=== PATIENT | male | born 1975 | race Caucasian/White ===

== ENCOUNTER 2020-06-12 06:56 | Outpatient (REF) | payer OTHER, SELFPAY | END 2020-06-12 06:57 | disposition home or self-care (01) | LOC: HO.LAB 06:56 | PROVIDERS: Visit Provider Internal Medicine | DX: Z20.828 Contact with and (suspected) exposure to other viral communicable diseases (principal) | CPT/HCPCS: C9803; U0003 ==

== ENCOUNTER 2022-10-24 17:12 | Emergency (ER) | payer OTHER, SELFPAY ==
--- NOTE | ~2022-10-24 | XR_ITS ---
EXAMINATION: XR CHEST CLINICAL INFORMATION: Reason for Exam left sided chest pain/rib pain COMPARISON: None TECHNIQUE: 2 views of the chest FINDINGS: Clear lungs. No pneumothorax or pleural effusion. Normal cardiomediastinal silhouette. No displaced rib fracture appreciated however chest radiographs have limited sensitivity. XR/XR chest 2V IMPRESSION: * Clear lungs.
[2022-10-24 17:55] VITALS: BP 122/96; PULSE 62; RESP 18; TEMP 36.9; O2SAT 99; BMI 22.9
--- NOTE | 2022-10-24 17:55 | ED.GENADULT ---
HPI - General Adult General Chief complaint: Chest Pain <KELLY Bhakta - Last Filed: 10/24/22 18:00> Stated complaint: left rib and back pain <KELLY Bhakta - Last Filed: 10/24/22 18:00> Time Seen by Provider: 10/24/22 23:13 <KELLY Bhakta - Last Filed: 10/24/22 18:00> Source: patient <Jomar Iyer MD - Last Filed: 10/24/22 23:44> Mode of arrival: ambulatory <Jomar Iyer MD - Last Filed: 10/24/22 23:44> Limitations: no limitations <Jomar Iyer MD - Last Filed: 10/24/22 23:44> History of Present Illness HPI narrative: 47-year-old male who presents emergency department for evaluation of left-sided chest pain. He states that the pain came on suddenly 2 nights prior and woke him up from sleep. He states the pain is worse with coughing and with breathing. He states the patient has been a constant, sharp pain located in the left side of his chest and axillary area. He states the pain is moderate to severe in intensity. He has been taking ibuprofen 800 mg 3 to 4 times a day with no relief his pain. He denied fever, chills, rhinorrhea, sore throat, shortness of breath, dyspnea on exertion, pain or swelling in his extremities, he is not going to any recent long trips, he has had no recent surgeries. <Jomar Iyer MD - Last Filed: 10/24/22 23:44> Related Data Home medications: Previous Rx's Medication Instructions Recorded morphine 15 mg immediate release 15 mg PO Q4-6H PRN pain #10 tabs 10/24/22 tablet <KELLY Bhakta - Last Filed: 10/24/22 18:00> Allergies/adverse reactions: Allergies Allergy/AdvReac Type Severity Reaction Status Date / Time No Known Allergies Allergy Unverified 04/06/20 15:09 <KELLY Bhakta - Last Filed: 10/24/22 18:00> Review of Systems Review of Systems: Yes all other systems are reviewed and are negative <Jomar Iyer MD - Last Filed: 10/24/22 23:44> [facility] Past Medical History [facility] Narrative: Past medical history: Migraines. Past surgical history: None. Social history: He denies tobacco and alcohol use. He occasionally smokes marijuana. 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 <Jomar Iyer MD - Last Filed: 10/24/22 23:44> Social History Social History: Social History Advance Directives: No Advance Directives Information Provided: Yes <KELLY Bhakta - Last Filed: 10/24/22 18:00> Physical Exam ED Vital Signs: Vital Signs - 24 hr 10/24/22 17:55 10/24/22 21:53 Temperature 98.4 F 97.0 F Pulse Rate 62 56 Respiratory Rate 18 17 Blood Pressure 122/96 H 114/82 Pulse Oximetry 99 100 Oxygen Delivery Method Room Air Room Air BMI result Body Mass Index 22.9 <KELLY Bhakta - Last Filed: 10/24/22 18:00> Vital Signs - 24 hr 10/24/22 17:55 10/24/22 21:53 Temperature 98.4 F 97.0 F Pulse Rate 62 56 Respiratory Rate 18 17 Blood Pressure 122/96 H 114/82 Pulse Oximetry 99 100 Oxygen Delivery Method Room Air Room Air BMI result Body Mass Index 22.9 <Jomar Iyer MD - Last Filed: 10/24/22 23:44> HENMT Head: Yes normal to inspection, Yes normocephalic and Yes atraumatic <Jomar Iyer MD - Last Filed: 10/24/22 23:44> Ears: external ears normal <Jomar Iyer MD - Last Filed: 10/24/22 23:44> General nose exam: Normal external nose present <Jomar Iyer MD - Last Filed: 10/24/22 23:44> Face and sinus: Yes normal facial exam <Jomar Iyer MD - Last Filed: 10/24/22 23:44> Mouth: Normal oral and palatal mucosa present <Jomar Iyer MD - Last Filed: 10/24/22 23:44> Throat: Yes posterior oropharynx normal <MD Des Antony Last Filed: 10/24/22 23:44> Eyes General: appearance normal, both eyes and all related structures <MD Des Antony Last Filed: 10/24/22 23:44> Pupils: Equal, round and reactive pupils present <MD Des Antony Last Filed: 10/24/22 23:44> Neck Neck: Yes normal visual inspection, Yes no lymphadenopathy, Yes trachea midline and Yes supple <Jomar Iyer MD - Last Filed: 10/24/22 23:44> Chest Other: Chest flores normal inspection, there is no rashes or lesions noted on his chest, he has mild left sided chest wall tenderness <Jomar Iyer MD - Last Filed: 10/24/22 23:44> Resp Effort & Inspection: normal respiratory effort and able to speak in complete sentences <MD Des Antony Last Filed: 10/24/22 23:44> Auscultation: clear to auscultation bilaterally <MD Des Antony Last Filed: 10/24/22 23:44> Cardio Rate: regular rate <MD Des Antony Last Filed: 10/24/22 23:44> Rhythm: regular rhythm <MD Des Antony Last Filed: 10/24/22 23:44> Heart sounds: S1 normal heart sound present, S2 normal heart sound present and no murmurs <MD Des Antony Last Filed: 10/24/22 23:44> GI Inspection: Yes normal to inspection <MD Des Antony Last Filed: 10/24/22 23:44> Palpation (GI): Soft to palpation, nontender and no guarding <MD Des Antony Last Filed: 10/24/22 23:44> Auscultation: normal bowel sounds <MD Des Antony Last Filed: 10/24/22 23:44> General: Yes no CVA tenderness <MD Des Antony Last Filed: 10/24/22 23:44> Back/Spine/Pelvis Back: no CVA tenderness <Jomar Iyer MD - Last Filed: 10/24/22 23:44> Skin General skin exam: no rashes or lesions noted <Jomar Iyer MD - Last Filed: 10/24/22 23:44> Neuro Cranial nerves: Yes CN's II-XII intact bilaterally and Yes Equal, round and reactive pupils present <Jomar Iyer MD - Last Filed: 10/24/22 23:44> Cognition (Neuro): normal cognition <Jomar Iyer MD - Last Filed: 10/24/22 23:44> Motor exam (neuro): 5/5 motor strength present throughout <Jomar Iyer MD - Last Filed: 10/24/22 23:44> Extrem General: Yes normal to inspection <Jomar Iyer MD - Last Filed: 10/24/22 23:44> Psych Appearance: grossly normal <Jomar Iyer MD - Last Filed: 10/24/22 23:44> Speech and movement: Normal speech and movement present <Jomar Iyer MD - Last Filed: 10/24/22 23:44> Affect: normal affect <Jomar Iyer MD - Last Filed: 10/24/22 23:44> Attitude: cooperative <Jomar Iyer MD - Last Filed: 10/24/22 23:44> Course Course Course Narrative: RME - 47 yo male presents to the ER for evaluation of nontraumatic, sharp pains in his left axillary area and left sided back pains that started yesterday. Pains kept him up at night. No relief with motrin. No SOB, nausea or diaphroesis. no cardiac risk factors. PERC negative Plan: labs, CXR and EKG <KELLY Bhakta - Last Filed: 10/24/22 18:00> Medical Decision Making Medical Decision Making MDM Narrative: 47-year-old male who presents emergency department for evaluation of sudden onset of left sided chest and axillary pain which started 2 nights prior, woke him up from sleep. The pain is been constant. The pain is worse with breathing with coughing. He had no concerning systemic symptoms such as fever, chills, shortness of breath or dyspnea on exertion. He has not noted any pain or swelling in his legs, he has had no recent surgeries or gone on any long trips. Patient's exam did reveal minimal tenderness with palpation of his chest. Patient's chest x-ray and 12 EKG were unremarkable. Patient's presentation is consistent with pleurisy. Patient was advised to take Tylenol and ibuprofen for his pain and for pain not relieved by these medications she was prescribed morphine. He was given printed and verbal instructions and discharged home. <Jomar Iyer MD - Last Filed: 10/24/22 23:44> Differential Diagnosis Differential diagnosis includes was not limited to chest wall pain, pleurisy, pulmonary embolism, myocardial infarction, pneumonia, pneumothorax, viral syndrome <Jomar Iyer MD - Last Filed: 10/24/22 23:44> Lab Data MDM Lab Attestation statement: I reviewed the patient's lab results. <Jomar Iyer MD - Last Filed: 10/24/22 23:44> My independent interpretation patient's laboratory evaluation is as follows: CBC, CMP, troponin were negative. <Jomar Iyer MD - Last Filed: 10/24/22 23:44> Result Diagrams: 10/24/22 18:04 10/24/22 18:04 <KELLY Bhakta - Last Filed: 10/24/22 18:00> Labs: Lab Results 10/24/22 10/24/22 10/24/22 Range/Units 18:04 18:04 18:04 WBC 7.5 (4.8-10.8) X10*3/uL RBC 4.46 L (4.60-5.80) X10*6/uL Hgb 13.2 L (14.0-18.0) g/dl Hct 38.7 L (42.0-52.0) % MCV 86.8 (80.0-98.0) fL MCH 29.6 (27.0-33.0) pg MCHC 34.1 (31.0-36.0) g/dl RDW 12.0 (11.0-16.0) % Plt Count 225 (160-400) X10*3/uL MPV 10.7 (9.4-12.4) fL Immature Gran % (Auto) 0.5 H (0.0-0.4) % Neut % (Auto) 63.4 (45-73) % Lymph % (Auto) 20.4 (20-40) % [place] % (Auto) 12.8 H (2-11) % Eos % (Auto) 2.4 (0-4) % Baso % (Auto) 0.5 (0-2) % Lymph # (Auto) 1.5 (1.2-4.9) X10*3/uL [place] # (Auto) 1.0 (0.1-1.2) X10*3/uL Eos # (Auto) 0.2 (0.0-0.4) X10*3/uL Baso # (Auto) 0.0 (0.0-0.2) X10*3/uL Abs Immat Gran (auto) 0.04 H (0.00-0.03) X10*3/uL Absolute Neuts (auto) 4.8 (2.0-8.3) x10*3/uL Absolute Nucleated RBC 0.000 (0.0-0.012) X10*3/uL Nucleated RBC % (auto) 0.0 (0.0-0.2) /100WBC Sodium 143 (135-145) mmol/L Potassium 4.5 (3.3-5.1) mmol/L Chloride 105 (96-108) mmol/L Carbon Dioxide 27 (22-29) mmol/L Anion Gap 16 (12-20) BUN 13 (9-16) mg/dL Creatinine 0.90 (0.5-1.4) mg/dL Estim Creat Clear Calc 105.2 Estimated GFR > 60 Random Glucose 99 (60-115) mg/dL Calcium 9.6 (8.4-10.2) mg/dL Magnesium 2.1 (1.6-2.6) mg/dL Total Bilirubin 0.4 (0.0-1.0) mg/dL Direct Bilirubin < 0.2 (0.0-0.5) mg/dL AST 18 (5-37) U/L ALT 16 (0-40) U/L Alkaline Phosphatase 107 (39-117) U/L Troponin I High Sens < 2.7 (<3.5-35.0) ng/L Total Protein 6.7 (6.5-8.0) g/dL Albumin 4.4 (3.5-5.0) g/dL <KELLY Bhakta - Last Filed: 10/24/22 18:00> Lab Results 10/24/22 10/24/22 10/24/22 Range/Units 18:04 18:04 18:04 WBC 7.5 (4.8-10.8) X10*3/uL RBC 4.46 L (4.60-5.80) X10*6/uL Hgb 13.2 L (14.0-18.0) g/dl Hct 38.7 L (42.0-52.0) % MCV 86.8 (80.0-98.0) fL MCH 29.6 (27.0-33.0) pg MCHC 34.1 (31.0-36.0) g/dl RDW 12.0 (11.0-16.0) % Plt Count 225 (160-400) X10*3/uL MPV 10.7 (9.4-12.4) fL Immature Gran % (Auto) 0.5 H (0.0-0.4) % Neut % (Auto) 63.4 (45-73) % Lymph % (Auto) 20.4 (20-40) % [place] % (Auto) 12.8 H (2-11) % Eos % (Auto) 2.4 (0-4) % Baso % (Auto) 0.5 (0-2) % Lymph # (Auto) 1.5 (1.2-4.9) X10*3/uL [place] # (Auto) 1.0 (0.1-1.2) X10*3/uL Eos # (Auto) 0.2 (0.0-0.4) X10*3/uL Baso # (Auto) 0.0 (0.0-0.2) X10*3/uL Abs Immat Gran (auto) 0.04 H (0.00-0.03) X10*3/uL Absolute Neuts (auto) 4.8 (2.0-8.3) x10*3/uL Absolute Nucleated RBC 0.000 (0.0-0.012) X10*3/uL Nucleated RBC % (auto) 0.0 (0.0-0.2) /100WBC Sodium 143 (135-145) mmol/L Potassium 4.5 (3.3-5.1) mmol/L Chloride 105 (96-108) mmol/L Carbon Dioxide 27 (22-29) mmol/L Anion Gap 16 (12-20) BUN 13 (9-16) mg/dL Creatinine 0.90 (0.5-1.4) mg/dL Estim Creat Clear Calc 105.2 Estimated GFR > 60 Random Glucose 99 (60-115) mg/dL Calcium 9.6 (8.4-10.2) mg/dL Magnesium 2.1 (1.6-2.6) mg/dL Total Bilirubin 0.4 (0.0-1.0) mg/dL Direct Bilirubin < 0.2 (0.0-0.5) mg/dL AST 18 (5-37) U/L ALT 16 (0-40) U/L Alkaline Phosphatase 107 (39-117) U/L Troponin I High Sens < 2.7 (<3.5-35.0) ng/L Total Protein 6.7 (6.5-8.0) g/dL Albumin 4.4 (3.5-5.0) g/dL <Jomar Iyer MD - Last Filed: 10/24/22 23:44> Independent Interpretation I performed an independent interpretation of an: EKG and Plain X-Ray <Jomar Iyer MD - Last Filed: 10/24/22 23:44> Interpretation: My independent interpretation patient's 12 EKG done at 1759 is as follows: Sinus bradycardia with a rate of 56, normal VT interval, QRS duration QTC interval, no ST segment elevation, no ST segment depression, no PACs, no PVCs except for the bradycardia this is a normal EKG. My independent interpretation patient's two-view chest x-ray is as follows: No pneumothorax, no pneumonia, no acute disease. <Jomar Iyer MD - Last Filed: 10/24/22 23:44> Radiology Impression Discussion of test interpretation with radiology: I have reviewed the radiologist's reading. <Jomar Iyer MD - Last Filed: 10/24/22 23:44> Radiologist Impression: XR chest 2V IMPRESSION: * Clear lungs. Dictated By:Radha Hernandez MD <Jomar Iyer MD - Last Filed: 10/24/22 23:44> Discharge Plan Discharge Clinical Impression: Chest pain, Acute pleurisy without pleural effusion <KELLY Bhakta - Last Filed: 10/24/22 18:00> Patient Disposition: Home, Self-Care <KELLY Bhakta - Last Filed: 10/24/22 18:00> Instructions: Pleurisy (ED) <KELLY Bhakta - Last Filed: 10/24/22 18:00> Additional Instructions: Your laboratory evaluation was normal. There is a marker for heart damage pulled troponin, you have no troponin in your blood. This is reassuring suggesting that your symptoms are not caused by heart damage/heart attack Your 12 EKG was normal. Your chest x-ray was unremarkable, there was no evidence for pneumonia or a popped lung (pneumothorax). Your symptoms are consistent with inflammation of the lining of the lung (pleurisy) Take ibuprofen 200 mg pills, 2 pills every 6 hours as needed for pain. Take Tylenol (acetaminophen) 2 pills every 6 hours as needed for pain. For pain not relieved by ibuprofen or Tylenol take morphine 15 mg pills, 1 pill every 4 hours as needed for pain. This medication will make you sleepy, do not drive or work while taking this medication. Morphine is a narcotic medication and can be addicting. If you are concerned about addiction you can ask the pharmacist for less pills or do not get this prescription filled. Follow-up with your doctor in 2 days. Please return to the emergency department if your symptoms get worse or if you develop any symptoms that are concerning to you. <KELLY Bhakta - Last Filed: 10/24/22 18:00> Prescriptions: New morphine 15 mg tablet 15 mg PO Q4-6H PRN (Reason: pain) Qty: 10 0RF Rx Instructions: The patient may ask for partial fill; Partial Fill upon patient request. <KELLY Bhakta - Last Filed: 10/24/22 18:00>
--- NOTE | 2022-10-24 17:56 | ECG_ITS ---
Test Reason : cp Blood Pressure : / mmHG Vent. Rate : 056 BPM Atrial Rate : 056 BPM P-R Int : 160 ms QRS Dur : 094 ms QT Int : 392 ms P-R-T Axes : 057 050 026 degrees QTc Int : 378 ms Sinus bradycardia Otherwise normal ECG No previous ECGs available Referred By: Janina Quintero Electronically Signed By:Gabe Lawton
[2022-10-24 18:08] LABS: MANUAL DIFF FLAG NO
[2022-10-24 18:11] LABS: Basophils Percent Auto 0.5 % (0-2); Eosinophils Absolute Auto 0.2 X10*3/uL (0.0-0.4); Eosinophils Percent Auto 2.4 % (0-4); Hematocrit 38.7 % (42.0-52.0); Hemoglobin 13.2 g/dl (14.0-18.0); Imm Gran Abs Auto 0.04 X10*3/uL (0.00-0.03); Imm Gran Pct Auto 0.5 % (0.0-0.4); Lymphocytes Absolute Auto 1.5 X10*3/uL (1.2-4.9); Lymphocytes Percent Auto 20.4 % (20-40); Mean Corpuscular HGB Conc 34.1 g/dl (31.0-36.0); Mean Corpuscular Hemoglobin 29.6 pg (27.0-33.0); Mean Corpuscular Volume 86.8 fL (80.0-98.0); Mean Platelet Volume 10.7 fL (9.4-12.4); Monocytes Percent Auto 12.8 % (2-11); Neutrophils Absolute Auto 4.8 x10*3/uL (2.0-8.3); Neutrophils Percent Auto 63.4 % (45-73); Platelet Count 225 X10*3/uL (160-400); Red Blood Count 4.46 X10*6/uL (4.60-5.80); White Blood Count 7.5 X10*3/uL (4.8-10.8)
[2022-10-24 18:27] LABS: Alanine Aminotransferase 16 U/L (0-40); Albumin Level 4.4 g/dL (3.5-5.0); Alkaline Phosphatase 107 U/L (39-117); Anion Gap 16 (12-20); Aspartate Amino Transferase 18 U/L (5-37); Bilirubin Direct < 0.2 mg/dL (0.0-0.5); Bilirubin Total 0.4 mg/dL (0.0-1.0); Blood Urea Nitrogen 13 mg/dL (9-16); Calcium 9.6 mg/dL (8.4-10.2); Carbon Dioxide 27 mmol/L (22-29); Chloride 105 mmol/L (96-108); Creatinine Clr Calc Pharmacy 105.2; Estimated Glomerular Filt Rate > 60; Glucose Random 99 mg/dL (60-115); Magnesium 2.1 mg/dL (1.6-2.6); Potassium 4.5 mmol/L (3.3-5.1); Sodium 143 mmol/L (135-145); Total Protein 6.7 g/dL (6.5-8.0)
[2022-10-24 18:35] LABS: Troponin-I High Sensitivity < 2.7 ng/L (<3.5-35.0)
[2022-10-24 21:53] VITALS: BP 114/82; PULSE 56; RESP 17; TEMP 36.1; O2SAT 100
== END 2022-10-24 23:58 | disposition home or self-care (01) ==
PROVIDERS: Physician Assistant; Emergency Provider Emergency Medicine Emergency Medical Services
DX: R07.9 Chest pain, unspecified (principal); R09.1 Pleurisy; M54.50 Low back pain, unspecified; Z79.899 Other long term (current) drug therapy
CPT/HCPCS: 36415; 71046; 80048; 80076; 83735; 84484; 85025; 93005; 99283

== ENCOUNTER 2024-03-30 06:45 | Emergency (ER) | payer OTHER, SELFPAY ==
--- NOTE | ~2024-03-30 | CT_ITS ---
EXAMINATION: CT ABDOMEN AND PELVIS WITHOUT CONTRAST CLINICAL INFORMATION: Flank pain. Possible kidney stone. COMPARISON: CT abdomen and pelvis April 20, 2013 TECHNIQUE: Multidetector volumetric imaging was performed from the superior aspect of the liver through the pubic symphysis. Sagittal and coronal reformatted images were obtained on the technologist's workstation. This CT examination was performed using dose optimization techniques as appropriate, variously including the following: *Automated exposure control *Adjustment of mA and/or kV according to patient size (this includes techniques or standardized protocols for targeted exams where dose is matched to indication/reason for exam; i.e. extremities or head) *Use of iterative reconstruction technique DLP: 4:15 mGy-cm FINDINGS: Visualized lung bases are well aerated. The liver is normal in size. The gallbladder is normal in appearance. The pancreas, spleen and adrenal glands are unremarkable. Symmetric sized kidneys. No renal calculi or hydronephrosis of either kidney. Small hiatal hernia. Stomach is relatively decompressed. Normal caliber loops of small and large bowel. Mild colonic diverticulosis without CT evidence to suggest active diverticulitis. Normal caliber abdominal aorta demonstrating mild atherosclerotic disease. No retroperitoneal lymphadenopathy The bladder is normal in appearance. The prostate gland is normal in size. No gross free pelvic fluid. No inguinal lymphadenopathy. Mild diffuse degenerative changes of the spine. Partially visualized T9 hem[address]oma[address] CT/CT abdomen pelvis wo IV con IMPRESSION: 1. No renal calculi or hydronephrosis of either kidney. 2. Mild colonic diverticulosis without CT evidence to suggest active diverticulitis. Fleischner guidelines were followed. Electronically signed by: Colby Mckeon MD 03/30/2024 08:01 AM EDT
--- NOTE | 2024-03-30 06:54 | ED.GENADULT ---
HPI - General Adult General Chief complaint: Urogenital-Male Stated complaint: possible kidney stone Time Seen by Provider: 03/30/24 06:53 Source: patient Mode of arrival: ambulatory Limitations: no limitations History of Present Illness ED Provider: Sherri Nance PA-C HPI narrative: Patient is a 48 year old assigned male at with a history of kidney stones presenting to the emergency department today with left flank pain. Patient states that over the last day he has had left sided flank pain and he had an episode of vomiting. Patient denies any dizziness, lightheadedness, abdominal pain, fever, chills, blurry vision, double vision, loss of vision, chest pain, difficulty breathing, shortness of breath, back pain, night sweats, pain with urination, increased urinary frequency, increased urinary urgency, blood in his urine or stool, syncope or a near syncopal episode, recent trauma or falls, bowel incontinence, bladder incontinence, or any other complaints at this time. Onset (ago): day(s) (1) Location: left (flank) Relieving factors: none Exacerbating factors: none Associated symptoms: nausea/vomiting Treatments prior to arrival: none Related Data Previous Rx's ?Medication ?Instructions ?Recorded morphine 15 mg immediate release 15 mg PO Q4-6H PRN pain #10 tabs 10/24/22 tablet Allergies Allergy/AdvReac Type Severity Reaction Status Date / Time No Known Allergies Allergy Verified 03/30/24 06:56 Review of Systems Constitutional: Constitutional: Reports no additional constitutional complaints, Denies chills, Denies fever(s) and Denies night sweats Eyes: Eyes: Reports no additional eye complaints, Denies blurry vision, Denies change in vision, Denies diplopia, Denies eye discharge, Denies loss of vision and Denies eye pain ENT: Denies dizziness Cardiovascular: Cardiovascular: Reports no additional cardiovascular complaints, Denies chest pain, Denies lightheadedness, Denies Loss of Consciousness and Denies dyspnea Respiratory: Respiratory: Reports no additional respiratory complaints and Denies dyspnea Gastrointestinal: Gastrointestinal: Reports no additional gastrointestinal complaints, Denies abdominal pain, Denies melena, Denies hematochezia, Denies change in bowel habits and Denies change in stool character Genitourinary: Genitourinary: Reports no additional male genitourinary complaints, Denies hematuria, Denies oliguria, Denies difficulty urinating, Denies dysuria, Denies urinary frequency, Denies urinary hesitancy, Denies urinary incontinence and Denies urinary urgency Comments: left flank pain Musculoskeletal: Musculoskeletal: Reports no additional musculoskeletal complaints, Denies numbness and Denies tingling Neurologic: Denies dizziness, Denies loss of vision, Denies numbness and Denies tingling Psychiatric: Psychiatric: Reports no additional psychiatric complaints Endocrine: Endocrine: Reports no additional endocrine complaints Hematologic/Lymphatic: Hematologic/Lymphatic: Reports no additional hematologic/lymphatic complaints Allergic/Immunologic: Allergic/Immunologic: Reports no additional allergic/immunologic complaints [facility] Past Medical History Attestation statement: The following information was validated with the patient. Source: old records reviewed and nursing notes reviewed Social History Social History Smoked in Last 30 Days: No Use of substances other than those prescribed or required for medical reasons: Yes Substance Use Type: Marijuana Advance Directives: No Advance Directives Information Provided: Yes Do you have a plan to hurt others: No Plan Physical Exam ED Vital Signs: Vital Signs - 24 hr 03/30/24 06:55 03/30/24 09:09 03/30/24 10:05 Temperature 97.7 F 97.6 F 97.6 F Pulse Rate 65 54 54 Respiratory Rate 17 18 18 Blood Pressure 114/67 106/77 106/77 Pulse Oximetry 95 96 96 Oxygen Delivery Method Room Air Room Air Room Air BMI result Body Mass Index 21.1 Const General: cooperative, no acute distress, alert and awake Nutritional Appearance: well nourished Orientation/consciousness: patient oriented x3 Limitations: no limitations [facility] Head: Yes normal to inspection and Yes atraumatic Ears: hearing grossly normal bilaterally and external ears normal General nose exam: Normal external nose present, no nasal discharge noted and no epistaxis Face and sinus: Yes normal facial exam, No abrasion and No laceration Mouth: Normal oral and palatal mucosa present, no drooling and no muffled voice Eyes General: appearance normal, both eyes and all related structures Periorbital: periorbital findings normal Eyelids: Yes eyelids normal Conjunctivae: conjunctivae normal Pupils: Equal, round and reactive pupils present EOM: EOMs intact bilaterally Neck Neck: Yes normal visual inspection, Yes full ROM and Yes no lymphadenopathy Chest Chest palpation & inspection: normal inspection of the chest Resp Effort & Inspection: normal respiratory effort and able to speak in complete sentences GI Inspection: Yes normal to inspection Palpation (GI): Soft to palpation, not firm, nontender, no guarding and not rigid Neuro General: patient oriented x3 and moves all extremities Cranial nerves: Yes Equal, round and reactive pupils present Cognition (Neuro): normal cognition Extrem General: Yes normal to inspection, Yes full ROM and Yes capillary refill normal Psych Appearance: grossly normal Mental Status: mental status grossly normal Affect: normal affect Attitude: cooperative Thought process: Normal thought process present Thought content: Normal thought content present Insight: Good insight present (Psych) Medications Administered Discontinued Medications Generic Name Dose Route Start Last Admin Trade Name Freq PRN Reason Stop Dose Admin Hydromorphone HCl 1 mg 03/30/24 08:03 03/30/24 08:11 Hydromorphone Hcl 1 Mg/Ml Syringe IVPUSH 03/30/24 08:04 1 mg ONCE ONE Administration Protocol Sodium Chloride 1,000 mls @ 999 mls/hr 03/30/24 07:00 03/30/24 08:24 Ns IV 03/30/24 08:00 Infused .Q1H1M VEENA Infusion Ketorolac Tromethamine 15 mg 03/30/24 06:57 03/30/24 07:07 Ketorolac Tromethamine 15 Mg/Ml Vial IVPUSH 03/30/24 06:58 15 mg ONCE ONE Administration Ondansetron HCl 4 mg 03/30/24 06:57 03/30/24 07:07 Ondansetron Hcl 4 Mg/2 Ml Vial IVPUSH 03/30/24 06:58 4 mg ONCE ONE Administration Medical Decision Making Medical Decision Making [facility] Narrative: Patient is a 48 year old assigned male at with a history of kidney stones presenting to the emergency department today with left flank pain. Patient's physical exam was unremarkable. Patient's blood work was unremarkable. Patient's urine showed no acute process. Patient's CT abd/pelvis showed no acute process. I explained my physical exam findings as well as all test results to the patient. I answered all questions asked by the patient. Patient received IV pain medication which upon re-evaluation he stated helped his symptoms significantly. I stressed the importance of the patient taking his medication as directed (either prescribed or as the over the counter packaging recommends). I stressed the importance of the patient following up with his primary care provider. I stressed the importance of the patient returning to the emergency department immediately if his symptoms were to worsen or if he were to develop any dizziness, shortness of breath, difficulty breathing, chest pain, blurry vision, loss of vision, nausea, vomiting, abdominal pain, fever, chills, back pain, or any other complaints. Patient verbalized agreement and understanding with this treatment plan and discharge. Differential Diagnosis Differential Diagnoses: The differential diagnosis associated with the presentation includes Left flank pain Passed kidney stone Diverticulitis Admission/Observation Consideration of admission/observation: Escalation of care including admission/observation considered Patient would have been admitted to the hospital had his work up had any findings where hospital admission was appropriate and his clinical presentation warranted hospital admission. Lab Data MDM Lab Attestation statement: I reviewed the patient's lab results. My interpretation of these studies and their corresponding values is that they are grossly normal. 03/30/24 07:05 03/30/24 07:05 Labs: Lab Results 03/30/24 03/30/24 Range/Units 07:05 09:11 WBC 4.8 (4.8-10.8) X10*3/uL RBC 4.47 L (4.60-5.80) X10*6/uL Hgb 13.3 L (14.0-18.0) g/dl Hct 37.8 L (42.0-52.0) % MCV 84.6 (80.0-98.0) fL MCH 29.8 (27.0-33.0) pg MCHC 35.2 (31.0-36.0) g/dl RDW 12.4 (11.0-16.0) % Plt Count 225 (160-400) X10*3/uL MPV 10.3 (9.4-12.4) fL Immature Gran % (Auto) 0.4 (0.0-0.4) % Neut % (Auto) 70.9 (45-73) % Lymph % (Auto) 16.3 L (20-40) % Falls % (Auto) 9.7 (2-11) % Eos % (Auto) 2.1 (0-4) % Baso % (Auto) 0.6 (0-2) % Lymph # (Auto) 0.8 L (1.2-4.9) X10*3/uL Falls # (Auto) 0.5 (0.1-1.2) X10*3/uL Eos # (Auto) 0.1 (0.0-0.4) X10*3/uL Baso # (Auto) 0.0 (0.0-0.2) X10*3/uL Abs Immat Gran (auto) 0.02 (0.00-0.03) X10*3/uL Absolute Neuts (auto) 3.4 (2.0-8.3) x10*3/uL Absolute Nucleated RBC 0.000 (0.0-0.012) X10*3/uL Nucleated RBC % (auto) 0.0 (0.0-0.2) /100WBC Sodium 142 (135-145) mmol/L Potassium 3.9 (3.3-5.1) mmol/L Chloride 109 H (96-108) mmol/L Carbon Dioxide 26 (22-29) mmol/L Anion Gap 11 L (12-20) BUN 13 (9-16) mg/dL Creatinine 0.89 (0.5-1.4) mg/dL Estim Creat Clear Calc 99.5 Estimated GFR > 60 Random Glucose 109 (60-115) mg/dL Calcium 9.4 (8.4-10.2) mg/dL Magnesium 2.0 (1.6-2.6) mg/dL Total Bilirubin 0.5 (0.0-1.0) mg/dL AST 19 (5-37) U/L ALT 13 (0-40) U/L Alkaline Phosphatase 80 (39-117) U/L Total Protein 6.7 (6.5-8.0) g/dL Albumin 4.2 (3.5-5.0) g/dL Urine Color Yellow Urine Appearance Clear Urine pH 6.5 (5.0-9.0) Ur Specific [place] 1.010 (1.005-1.025) Urine Protein Negative (Neg-Trace) mg/dL Urine Glucose (UA) Negative (Negative) mg/dL Urine Ketones Negative (Negative) mg/dL Urine Blood Negative (Negative) Urine Nitrite Negative (Negative) Ur Leukocyte Esterase Negative (Negative) Influenza Type A (PCR) NEGATIVE (Negative) Influenza Type B (PCR) NEGATIVE (Negative) RSV RNA Qual (PCR) NEGATIVE (Negative) SARS-CoV-2 RNA (RT-PCR) NEGATIVE (Negative) Independent Interpretation I performed an independent interpretation of an: CT Scan Interpretation: My interpretation is in agreement with the radiologist's impression of this imaging study. EXAMINATION: CT ABDOMEN AND PELVIS WITHOUT CONTRAST CLINICAL INFORMATION: Flank pain. Possible kidney stone. COMPARISON: CT abdomen and pelvis April 20, 2013 TECHNIQUE: Multidetector volumetric imaging was performed from the superior aspect of the liver through the pubic symphysis. Sagittal and coronal reformatted images were obtained on the technologist's workstation. This CT examination was performed using dose optimization techniques as appropriate, variously including the following: *Automated exposure control *Adjustment of mA and/or kV according to patient size (this includes techniques or standardized protocols for targeted exams where dose is matched to indication/reason for exam; i.e. extremities or head) *Use of iterative reconstruction technique DLP: 4:15 mGy-cm FINDINGS: Visualized lung bases are well aerated. The liver is normal in size. The gallbladder is normal in appearance. The pancreas, spleen and adrenal glands are unremarkable. Symmetric sized kidneys. No renal calculi or hydronephrosis of either kidney. Small hiatal hernia. Stomach is relatively decompressed. Normal caliber loops of small and large bowel. Mild colonic diverticulosis without CT evidence to suggest active diverticulitis. Normal caliber abdominal aorta demonstrating mild atherosclerotic disease. No retroperitoneal lymphadenopathy The bladder is normal in appearance. The prostate gland is normal in size. No gross free pelvic fluid. No inguinal lymphadenopathy. Mild diffuse degenerative changes of the spine. Partially visualized T9 hem[address]oma[address] CT/CT abdomen pelvis wo IV con IMPRESSION: 1. No renal calculi or hydronephrosis of either kidney. 2. Mild colonic diverticulosis without CT evidence to suggest active diverticulitis. Fleischner guidelines were followed. Electronically signed by: Colby Mckeon MD 03/30/2024 08:01 AM EDT RP Dictated By: Colby Mckeon MD Signed By: Electronically signed by Colby Mckeon MD 03/30/24 0801 Radiology Impression Discussion of test interpretation with radiology: I have reviewed the radiologist's reading. Critical Care Time Critical Care Time Critical Care Time: Yes Total Critical Care Time: 42 Attestation: I spent 42 minutes of Critical Care Time with this patient. This does not include time spent on separately reported billable procedures. Discharge Plan Discharge Clinical Impression: Abdominal pain Patient Disposition: Home, Self-Care Instructions: Abdominal Pain (ED) Additional Instructions: Follow up with your primary care provider. Return to the emergency department immediately if your symptoms worsen or if you develop any dizziness, shortness of breath, difficulty breathing, chest pain, blurry vision, loss of vision, nausea, vomiting, abdominal pain, fever, chills, back pain, or any other complaints. Prescriptions: No Action morphine 15 mg tablet 15 mg PO Q4-6H PRN (Reason: pain) Qty: 10 0RF Rx Instructions: The patient may ask for partial fill; Partial Fill upon patient request. Referrals: [facility] [place] Family Medicine [Provider Group] (Call to establish and follow up with a primary care provider. If you already have a primary care provider, please follow up with them.) [facility] [place] [facility] [Provider Group] (Call to establish and follow up with a primary care provider. If you already have a primary care provider, please follow up with them.) [facility] [place] [facility] [Provider Group] (Call to establish and follow up with a primary care provider. If you already have a primary care provider, please follow up with them.) Stand Alone Forms: Work/School Release Interventions: ED Discharge Assessment Last Done: 03/30/24 10:05 Discharge Date/Time: 03/30/24 10:19 Print Language: Lao
[2024-03-30 06:55] VITALS: BP 114/67; PULSE 65; RESP 17; TEMP 36.5; O2SAT 95; BMI 21.1
[2024-03-30] MEDS: Ketorolac Tromethamine 15 MG/ML VIAL IVPUSH (07:07)
[2024-03-30] MEDS: ondansetron HCL 4 MG/2 ML VIAL IVPUSH (07:07)
[2024-03-30] MEDS: 0.9 % Sodium Chloride 1,000 ML 999 ML IV (07:08)
[2024-03-30 07:11] LABS: MANUAL DIFF FLAG NO
[2024-03-30 07:14] LABS: Basophils Percent Auto 0.6 % (0-2); Eosinophils Absolute Auto 0.1 X10*3/uL (0.0-0.4); Eosinophils Percent Auto 2.1 % (0-4); Hematocrit 37.8 % (42.0-52.0); Hemoglobin 13.3 g/dl (14.0-18.0); Imm Gran Abs Auto 0.02 X10*3/uL (0.00-0.03); Imm Gran Pct Auto 0.4 % (0.0-0.4); Lymphocytes Absolute Auto 0.8 X10*3/uL (1.2-4.9); Lymphocytes Percent Auto 16.3 % (20-40); Mean Corpuscular HGB Conc 35.2 g/dl (31.0-36.0); Mean Corpuscular Hemoglobin 29.8 pg (27.0-33.0); Mean Corpuscular Volume 84.6 fL (80.0-98.0); Mean Platelet Volume 10.3 fL (9.4-12.4); Monocytes Absolute Auto 0.5 X10*3/uL (0.1-1.2); Monocytes Percent Auto 9.7 % (2-11); Neutrophils Absolute Auto 3.4 x10*3/uL (2.0-8.3); Neutrophils Percent Auto 70.9 % (45-73); Platelet Count 225 X10*3/uL (160-400); Red Blood Count 4.47 X10*6/uL (4.60-5.80); Red Cell Distribution Width 12.4 % (11.0-16.0); White Blood Count 4.8 X10*3/uL (4.8-10.8)
--- NOTE | 2024-03-30 07:27 | PC.NURSE ---
a&ox4. vss and up to date. pt presents to the ED w/ left sided flank pain radiating to LLQ w/ associated nausea/vomiting/decreased PO intake x yesterday. pt denies any urinary sx/fever/chills/diarrhea. abd tender w/ palpation. pt reports hx of kidney stones. 20gIV placed in the left AC - labs obtained/sent to lab. IVF/medication administered per provider order. effectiveness pending. pt aware UA is needed - cup placed bedside for convenience. no sob/wob noted. respirations even/unlabored. plan of care ongoing. call zhang placed within reach.
--- NOTE | 2024-03-30 07:36 | PC.NURSE ---
pt to CT at this time.
[2024-03-30 07:38] LABS: Alanine Aminotransferase 13 U/L (0-40); Albumin Level 4.2 g/dL (3.5-5.0); Anion Gap 11 (12-20); Aspartate Amino Transferase 19 U/L (5-37); Bilirubin Total 0.5 mg/dL (0.0-1.0); Blood Urea Nitrogen 13 mg/dL (9-16); Calcium 9.4 mg/dL (8.4-10.2); Carbon Dioxide 26 mmol/L (22-29); Chloride 109 mmol/L (96-108); Creatinine Clr Calc Pharmacy 99.5; Estimated Glomerular Filt Rate > 60; Glucose Random 109 mg/dL (60-115); Potassium 3.9 mmol/L (3.3-5.1); Sodium 142 mmol/L (135-145); Total Protein 6.7 g/dL (6.5-8.0)
[2024-03-30 07:45] LABS: Alkaline Phosphatase 80 U/L (39-117)
[2024-03-30 08:07] LABS: Influenza A PCR NEGATIVE (Negative); Influenza B PCR NEGATIVE (Negative); Resp Syncy Virus RNA Qual PCR NEGATIVE (Negative); SARS COV2 PCR INHOUSE NEGATIVE (Negative)
[2024-03-30] MEDS: HYDROmorphone HCl 1 MG/ML SYRINGE IVPUSH (08:11)
--- NOTE | 2024-03-30 08:12 | PC.NURSE ---
pt verbalizing previous medication administration was not effective. pt remedicated. effectiveness pending.
[2024-03-30 09:09] VITALS: BP 106/77; PULSE 54; RESP 18; TEMP 36.4; O2SAT 96
--- NOTE | 2024-03-30 09:13 | PC.NURSE ---
pt aware UA is still needed. pt states he is unable to void as he does not have the urgency. bladder scan performed displaying 226ml. provider notified/aware. pt then was able to void in the restroom w/o difficulty. urine obtained/sent to lab.
[2024-03-30 09:18] LABS: Appearance Urine Clear; Color Urine Yellow; Glucose Urine UA Negative (Negative); Leukocyte Esterase Urine Negative (Negative); Nitrite Urine Negative (Negative); PH 6.5 (5.0-9.0); Urine Blood Negative (Negative); Urine Ketones Negative (Negative); Urine Protein Negative (Neg-Trace)
[2024-03-30 10:05] VITALS: BP 106/77; PULSE 54; RESP 18; TEMP 36.4; O2SAT 96
== END 2024-03-30 10:19 | disposition home or self-care (01) ==
PROVIDERS: Physician Assistant Medical; Emergency Provider Emergency Medicine Emergency Medical Services
DX: R10.9 Unspecified abdominal pain (principal); R11.2 Nausea with vomiting, unspecified; Z03.818 Encounter for observation for suspected exposure to other biological agents ruled out; Z87.442 Personal history of urinary calculi
CPT/HCPCS: 0241U; 74176; 80053; 81003; 83735; 85025; 96361; 96374; 96375; 99284; 99285; J1170; J1885; J2405